=== PATIENT | male | born 1985 | race African-American/Black ===

== ENCOUNTER 2017-07-10 10:25 | Inpatient (IN) | payer SELFPAY ==
[~2017-07-10] VITALS: Ht 175.3 cm; Wt 101.6 kg
[2017-07-10] MEDS ORDERED: LORAZEPAM 2MG/ML CPJ IM ONE (11:30)
[2017-07-10 12:13] LABS: BASOPHILS % 0.8 % (0.0-2.0); EOSINOPHILS % 0.4 % (0.0-5.0); HEMATOCRIT. 41.6 % (42.0-52.0); HEMOGLOBIN. 14.2 g/dL (14.0-18.0); LYMPHOCYTES % 17.2 % (20.0-50.0); MEAN CORPUSCULAR HEMOGLOBIN 28.8 pg (28.0-32.0); MEAN CORPUSCULAR VOLUME 84.1 fL (80.0-94.0); MEAN PLATELET VOLUME 9.2 fl (7.4-10.4); MONOCYTES % 7.2 % (2.0-8.0); NEUTROPHILS % 74.4 % (40.0-76.0); PLATELET 213 x1000/uL (130-400); RED BLOOD CELL COUNT 4.94 mill/uL (4.7-6.1); RED CELL DISTRIBUTION WIDTH 13.5 % (11.6-14.6)
[2017-07-10 12:17] LABS: CHLORIDE 103 mEq/L (98-107)
[2017-07-10 12:18] LABS: INR 1.1; PARTIAL THROMBOPLASTIN TIME 23.1 sec (23.4-31.0); PROTHROMBIN TIME 11.8 sec (9.4-11.6)
[2017-07-10 12:22] LABS: ETHANOL BLOOD < 10 mg/dL
[2017-07-10 12:28] LABS: CARBAMAZEPINE < 0.5 ug/mL (4-12); PHENOBARBITAL < 2.1 ug/mL (15.0-40.0)
[2017-07-10] MEDS ORDERED: LEVETIRACETAM 500MG PREMIX 100 ML IV ONE (12:45)
[2017-07-10] MEDS ORDERED: OLANZAPINE 10 MG/VIAL IM ONE (13:00)
[2017-07-10 13:27] LABS: *AMPHETAMINES SCREEN URINE NEGATIVE (NEGATIVE); *BENZODIAZEPINES SCREEN URINE NEGATIVE (NEGATIVE); *COCAINE SCREEN URINE NEGATIVE (NEGATIVE); CANNABINOID URINE SCREEN NEGATIVE (NEGATIVE); METHADONE URINE SCREEN NEGATIVE (NEGATIVE); OPIATES URINE SCREEN NEGATIVE (NEGATIVE); PHENCYCLIDINE URINE SCREEN NEGATIVE (NEGATIVE)
[2017-07-10 13:31] LABS: *BARBITURATES SCREEN URINE NEGATIVE (NEGATIVE)
[2017-07-10] MEDS ORDERED: MIDAZOLAM HCL 2 MG/2 ML VIAL IV ONE (14:45)
[2017-07-10] MEDS ORDERED: LORAZEPAM 2MG/ML CPJ IV PRN (15:30)
[2017-07-10] MEDS ORDERED: CLONIDINE 0.1MG TABLET PO PRN (15:30)
[2017-07-10 18:22] VITALS: BP 148/90
[2017-07-10 18:30] VITALS: BP 148/90
[2017-07-10 20:00] VITALS: BP 154/95
[2017-07-10] MEDS: NIFEDIPINE XL 60MG TAB PO SCH (21:00)
[2017-07-10] MEDS: INSULIN LISPRO 100 UNITS/ML SUBCUT SCH (21:00)
[2017-07-10] MEDS: LEVETIRACETAM 500MG TABLET PO SCH (21:00)
[2017-07-10] MEDS: BLOOD SUGAR DIAGNOSTIC STRIP TEST SCH (21:22)
[2017-07-11] VITALS (31 sets, daily range): BP systolic 117–177; BP diastolic 75–111
[2017-07-11] MEDS ORDERED: LORAZEPAM 2MG/ML CPJ IV PRN (04:00)
[2017-07-11] MEDS: LORAZEPAM 2MG/ML CPJ IM PRN ×6 (04:13→22:14)
[2017-07-11] MEDS: BLOOD SUGAR DIAGNOSTIC STRIP TEST SCH ×4 (07:20→21:00)
[2017-07-11] MEDS: NIFEDIPINE XL 60MG TAB PO SCH ×3 (08:34→20:39)
[2017-07-11] MEDS: LEVETIRACETAM 500MG TABLET PO SCH ×2 (08:35→09:00)
[2017-07-11] MEDS: DEXTROSE 50% WATER 50ML SYRINGE IV PRN ×2 (08:45→22:24)
[2017-07-11] MEDS ORDERED: HYDRALAZINE 20MG/ML VIAL IV PRN (09:45)
[2017-07-11] MEDS ORDERED: LEVETIRACETAM 500MG PREMIX 100 ML IV SCH (10:00)
[2017-07-11] MEDS ORDERED: PHENYTOIN SODIUM 1,000 MG in SODIUM CHLORIDE 0.9% 100 ML IV ONE ×2 (11:30→12:45)
[2017-07-11] MEDS: INSULIN LISPRO 100 UNITS/ML SUBCUT SCH ×2 (12:00→17:00)
[2017-07-11] MEDS: DEXT 5%/0.45% NACL KCL 20MEQ/L 1,000 ML IV SCH (20:28)
[2017-07-11] MEDS: QUETIAPINE FUMARATE 25MG TABLET PO SCH (20:40)
[2017-07-12] VITALS (32 sets, daily range): BP systolic 121–158; BP diastolic 75–115
[2017-07-12] MEDS: LORAZEPAM 2MG/ML CPJ IM PRN ×3 (02:23→14:38)
[2017-07-12] MEDS: BLOOD SUGAR DIAGNOSTIC STRIP TEST SCH ×4 (06:23→21:06)
[2017-07-12] MEDS: NIFEDIPINE XL 60MG TAB PO SCH ×2 (09:00→21:02)
[2017-07-12] MEDS: PANTOPRAZOLE SODIUM 40 MG/VIAL IV SCH (09:00)
[2017-07-12] MEDS: QUETIAPINE FUMARATE 25MG TABLET PO SCH ×2 (09:00→21:02)
[2017-07-12] MEDS: DEXT 5%/0.45% NACL KCL 20MEQ/L 1,000 ML IV SCH (10:05)
[2017-07-12] MEDS ORDERED: KEPP500 PO (11:04)
[2017-07-12] MEDS ORDERED: NIFE60TA64 PO (11:04)
[2017-07-12] MEDS ORDERED: PHENYTOIN SODIUM 100MG/2ML VIAL IV SCH (21:00)
[2017-07-12] MEDS: PHENYTOIN SODIUM 300MG in SODIUM CHLORIDE 0.9% 50ML IV SCH (22:18)
[2017-07-13] VITALS: BP 144/72
[2017-07-13 04:00] VITALS: BP 128/82
[2017-07-13] MEDS: DEXT 5%/0.45% NACL KCL 20MEQ/L 1,000 ML IV SCH ×2 (06:43→12:00)
[2017-07-13] MEDS: BLOOD SUGAR DIAGNOSTIC STRIP TEST SCH ×4 (06:43→21:00)
[2017-07-13 08:00] VITALS: BP 128/90
[2017-07-13] MEDS: PANTOPRAZOLE SODIUM 40 MG/VIAL IV SCH (10:08)
[2017-07-13] MEDS: QUETIAPINE FUMARATE 25MG TABLET PO SCH ×2 (10:08→21:47)
[2017-07-13] MEDS: NIFEDIPINE XL 60MG TAB PO SCH ×2 (10:08→21:00)
[2017-07-13 12:00] VITALS: BP 130/76
[2017-07-13 16:00] VITALS: BP 116/71
[2017-07-13 20:00] VITALS: BP 112/66
[2017-07-13] MEDS: PHENYTOIN SODIUM 300MG in SODIUM CHLORIDE 0.9% 50ML IV SCH (21:50)
[2017-07-14] VITALS: BP 115/73
[2017-07-14] MEDS: DEXT 5%/0.45% NACL KCL 20MEQ/L 1,000 ML IV SCH ×2 (03:27→14:40)
[2017-07-14] MEDS: BLOOD SUGAR DIAGNOSTIC STRIP TEST SCH ×4 (05:53→20:33)
[2017-07-14 08:00] VITALS: BP 116/67
[2017-07-14] MEDS: QUETIAPINE FUMARATE 25MG TABLET PO SCH ×2 (09:04→20:44)
[2017-07-14] MEDS: PANTOPRAZOLE SODIUM 40 MG/VIAL IV SCH (09:04)
[2017-07-14] MEDS: NIFEDIPINE XL 60MG TAB PO SCH ×2 (09:05→20:45)
[2017-07-14 16:00] VITALS: BP 121/64
[2017-07-14 20:00] VITALS: BP 143/68
[2017-07-14] MEDS: FAMOTIDINE 20MG TABLET PO SCH (20:44)
[2017-07-14] MEDS: PHENYTOIN SODIUM 300MG in SODIUM CHLORIDE 0.9% 50ML IV SCH (22:41)
[2017-07-15] VITALS: BP 115/65
[2017-07-15 04:00] VITALS: BP 117/68
[2017-07-15] MEDS: BLOOD SUGAR DIAGNOSTIC STRIP TEST SCH ×4 (05:56→19:54)
[2017-07-15 08:00] VITALS: BP 141/62
[2017-07-15] MEDS: NIFEDIPINE XL 60MG TAB PO SCH ×2 (08:34→20:20)
[2017-07-15] MEDS: FAMOTIDINE 20MG TABLET PO SCH ×2 (08:34→20:21)
[2017-07-15] MEDS: QUETIAPINE FUMARATE 25MG TABLET PO SCH ×2 (08:34→20:21)
[2017-07-15] MEDS: DEXT 5%/0.45% NACL KCL 20MEQ/L 1,000 ML IV SCH ×2 (10:03→17:20)
[2017-07-15 12:00] VITALS: BP 150/67
[2017-07-15 16:00] VITALS: BP 115/63
[2017-07-15 20:00] VITALS: BP 107/62
[2017-07-15] MEDS: PHENYTOIN SODIUM 300MG in SODIUM CHLORIDE 0.9% 50ML IV SCH (21:20)
[2017-07-16] VITALS: BP 121/62
[2017-07-16 04:00] VITALS: BP 109/80
[2017-07-16] MEDS: BLOOD SUGAR DIAGNOSTIC STRIP TEST SCH (06:04)
[2017-07-16 07:11] LABS: BASOPHILS % 0.8 % (0.0-2.0); EOSINOPHILS % 5.3 % (0.0-5.0); HEMATOCRIT. 38.6 % (42.0-52.0); HEMOGLOBIN. 13.1 g/dL (14.0-18.0); LYMPHOCYTES % 26.2 % (20.0-50.0); MEAN CORPUSCULAR VOLUME 85.6 fL (80.0-94.0); MEAN PLATELET VOLUME 9.3 fl (7.4-10.4); MONOCYTES % 6.8 % (2.0-8.0); NEUTROPHILS % 60.9 % (40.0-76.0); PLATELET 210 x1000/uL (130-400); RED BLOOD CELL COUNT 4.51 mill/uL (4.7-6.1); RED CELL DISTRIBUTION WIDTH 13.2 % (11.6-14.6)
[2017-07-16 08:00] VITALS: BP 114/71
[2017-07-16] MEDS: NIFEDIPINE XL 60MG TAB PO SCH ×2 (08:05→20:34)
[2017-07-16] MEDS: QUETIAPINE FUMARATE 25MG TABLET PO SCH ×2 (08:05→20:34)
[2017-07-16] MEDS: FAMOTIDINE 20MG TABLET PO SCH ×2 (08:05→20:33)
[2017-07-16 08:21] LABS: CHLORIDE 103 mEq/L (98-107)
[2017-07-16 12:00] VITALS: BP 111/65
[2017-07-16] MEDS: DEXT 5%/0.45% NACL KCL 20MEQ/L 1,000 ML IV SCH ×2 (13:38→20:40)
[2017-07-16 16:00] VITALS: BP 115/70
[2017-07-16 20:00] VITALS: BP 110/63
[2017-07-16] MEDS: PHENYTOIN SODIUM 300MG in SODIUM CHLORIDE 0.9% 50ML IV SCH (20:40)
[2017-07-17] VITALS: BP 108/80
[2017-07-17 04:00] VITALS: BP 125/85
[2017-07-17 08:00] VITALS: BP 117/70
[2017-07-17] MEDS: FAMOTIDINE 20MG TABLET PO SCH ×2 (08:33→20:52)
[2017-07-17] MEDS: NIFEDIPINE XL 60MG TAB PO SCH ×2 (08:33→20:52)
[2017-07-17] MEDS: QUETIAPINE FUMARATE 25MG TABLET PO SCH ×2 (08:33→20:52)
[2017-07-17 11:46] VITALS: BP 115/75
[2017-07-17 16:00] VITALS: BP 120/78
[2017-07-17 20:00] VITALS: BP 129/79
[2017-07-17] MEDS: PHENYTOIN SODIUM 300MG in SODIUM CHLORIDE 0.9% 50ML IV SCH (20:16)
[2017-07-17] MEDS: DEXT 5%/0.45% NACL KCL 20MEQ/L 1,000 ML IV SCH (20:17)
[2017-07-18] VITALS: BP 119/63
[2017-07-18 04:00] VITALS: BP 115/73
[2017-07-18 08:00] VITALS: BP 139/64
[2017-07-18] MEDS: NIFEDIPINE XL 60MG TAB PO SCH ×2 (08:20→20:39)
[2017-07-18] MEDS: FAMOTIDINE 20MG TABLET PO SCH ×2 (08:20→20:39)
[2017-07-18] MEDS: QUETIAPINE FUMARATE 25MG TABLET PO SCH ×2 (08:20→20:40)
[2017-07-18 11:39] VITALS: BP 118/73
[2017-07-18 15:32] VITALS: BP 117/76
[2017-07-18 20:00] VITALS: BP 113/69
[2017-07-18] MEDS: PHENYTOIN SODIUM EXTENDED 100MG CAPSULE PO SCH (20:39)
[2017-07-19 00:59] VITALS: BP 110/60
[2017-07-19 04:00] VITALS: BP 108/62
[2017-07-19 08:00] VITALS: BP 115/77
[2017-07-19] MEDS: QUETIAPINE FUMARATE 25MG TABLET PO SCH ×2 (08:41→20:31)
[2017-07-19] MEDS: FAMOTIDINE 20MG TABLET PO SCH ×2 (08:41→20:31)
[2017-07-19] MEDS: NIFEDIPINE XL 60MG TAB PO SCH ×2 (08:41→20:32)
[2017-07-19 12:00] VITALS: BP 115/78
[2017-07-19 15:39] VITALS: BP 117/75
[2017-07-19 20:00] VITALS: BP 111/68
[2017-07-19] MEDS: PHENYTOIN SODIUM EXTENDED 100MG CAPSULE PO SCH (20:31)
[2017-07-20] VITALS: BP 114/71
[2017-07-20 04:00] VITALS: BP 101/52
[2017-07-20 08:00] VITALS: BP 106/63
[2017-07-20] MEDS: QUETIAPINE FUMARATE 25MG TABLET PO SCH ×2 (08:24→20:43)
[2017-07-20] MEDS: FAMOTIDINE 20MG TABLET PO SCH ×2 (08:25→20:43)
[2017-07-20] MEDS: NIFEDIPINE XL 60MG TAB PO SCH ×2 (08:26→20:43)
[2017-07-20 12:00] VITALS: BP 103/63
[2017-07-20 16:00] VITALS: BP 121/82
[2017-07-20 20:01] VITALS: BP 112/72
[2017-07-20] MEDS: PHENYTOIN SODIUM EXTENDED 100MG CAPSULE PO SCH (20:43)
[2017-07-21] VITALS: BP 95/56
[2017-07-21 04:00] VITALS: BP 108/59
[2017-07-21 07:22] VITALS: BP 112/62
[2017-07-21] MEDS: NIFEDIPINE XL 60MG TAB PO SCH (09:49)
[2017-07-21] MEDS: QUETIAPINE FUMARATE 25MG TABLET PO SCH (09:49)
[2017-07-21] MEDS: FAMOTIDINE 20MG TABLET PO SCH (09:49)
[2017-07-21 12:00] VITALS: BP 113/73
== END 2017-07-21 15:25 | disposition home or self-care (01) | DRG 53 ==
LOC: ER 10:40 → 6WST 13:30 → EDBEDREQ 13:33 → CANRESERV 14:01 → ENRESERV 14:01 → MICUSO 07-11 07:00 → 6EST 07-12 18:05 → 8WST 07-13 17:27
PROVIDERS: ADMIT Internal Medicine; ATTEND Internal Medicine
PROC: 4A00X4Z Measurement of Central Nervous Electrical Activity, External Approach (ICD-10-PCS; principal; 2017-07-11)
DX: G40.409 Other generalized epilepsy and epileptic syndromes, not intractable, without status epilepticus (principal); Z78.1 Physical restraint status; I10 Essential (primary) hypertension; F99 Mental disorder, not otherwise specified; E66.9 Obesity, unspecified; Z59.0 Homelessness; Z68.33 Body mass index [BMI] 33.0-33.9, adult; Z71.3 Dietary counseling and surveillance
CPT/HCPCS: 36415; 70450; 70551; 80048; 80053; 80156; 80165; 80184; 80185; 80305; 80307; 80329; 82962; 83036; 85025; 85610; 85730; 93005; 96372; 96374; 96375; 99291; C1893; C9113; G0482; J0360; J1165; J1953; J2060; J2250; J3490; J7050

== ENCOUNTER 2018-12-31 11:10 | Emergency (ER) | payer MEDICAID, MEDICARE ==
[~2018-12-31] VITALS: Ht 182.9 cm; Wt 98.0 kg
[~2018-12-31 11:10] MED LIST: KEPP500 PO; NIFE60TA64 PO
[2018-12-31] MEDS ORDERED: SODIUM CHLORIDE 0.9% 1,000 ML IV ONE (12:17)
[2018-12-31 12:51] LABS: BASOPHILS % 0.7 % (0.0-2.0); EOSINOPHILS % 2.5 % (0.0-5.0); HEMATOCRIT. 42.1 % (42.0-52.0); HEMOGLOBIN. 14.4 g/dL (14.0-18.0); LYMPHOCYTES % 19.7 % (20.0-50.0); MEAN CORPUSCULAR HEMOGLOBIN 28.8 pg (28.0-32.0); MEAN PLATELET VOLUME 9.2 fl (7.4-10.4); MONOCYTES % 6.8 % (2.0-8.0); NEUTROPHILS % 70.3 % (40.0-76.0); PLATELET 203 x1000/uL (130-400); RED BLOOD CELL COUNT 5.01 mill/uL (4.7-6.1); RED CELL DISTRIBUTION WIDTH 13.5 % (11.6-14.6)
[2018-12-31 13:03] LABS: CHLORIDE 106 mEq/L (98-107)
[2018-12-31 13:06] LABS: ETHANOL BLOOD < 10 mg/dL
[2018-12-31] MEDS ORDERED: LORAZEPAM 2MG/ML CPJ ONE (13:39)
[2018-12-31 13:45] LABS: CLARITY URINE CLEAR (CLEAR); COLOR URINE YELLOW (YELLOW); KETONES URINE NEGATIVE (NEGATIVE); LEUKOCYTE ESTERASE URINE NEGATIVE (NEGATIVE); NITRITE URINE NEGATIVE (NEGATIVE); OCCULT BLOOD URINE NEGATIVE (NEGATIVE); PROTEIN URINE 1+ (NEGATIVE); SPECIFIC GRAVITY URINE 1.024 (1.005-1.030); UROBILINOGEN URINE 0.2 E.U./dL (0.2-1.0)
[2018-12-31] MEDS ORDERED: LORAZEPAM 2MG/ML CPJ IV ONE ×2 (13:45→16:45)
[2018-12-31] MEDS ORDERED: OLANZAPINE 10 MG/VIAL IM ONE ×2 (13:45→19:15)
[2018-12-31 14:08] LABS: *AMPHETAMINES SCREEN URINE NEGATIVE (NEGATIVE); *BENZODIAZEPINES SCREEN URINE NEGATIVE (NEGATIVE); *COCAINE SCREEN URINE NEGATIVE (NEGATIVE); METHADONE URINE SCREEN NEGATIVE (NEGATIVE)
[2018-12-31 14:09] LABS: *BARBITURATES SCREEN URINE NEGATIVE (NEGATIVE); CANNABINOID URINE SCREEN NEGATIVE (NEGATIVE); OPIATES URINE SCREEN NEGATIVE (NEGATIVE); PHENCYCLIDINE URINE SCREEN NEGATIVE (NEGATIVE)
[2018-12-31] MEDS ORDERED: HALOPERIDOL LACTATE 5MG/ML VIAL IM ONE (19:15)
[2019-01-02] MEDS ORDERED: NIFEDIPINE XL 60MG TAB PO ONE (16:15)
[2019-01-02] MEDS ORDERED: CLONIDINE 0.2MG TABLET PO ONE (21:00)
[2019-01-04] MEDS ORDERED: HYDRALAZINE 20MG/ML VIAL IM ONE (11:45)
[2019-01-04] MEDS ORDERED: LORAZEPAM 2MG/ML CPJ IM ONE (15:15)
[2019-01-04] MEDS ORDERED: HALOPERIDOL LACTATE 5MG/ML VIAL IM ONE (16:00)
[2019-01-04] MEDS ORDERED: DIPHENHYDRAMINE 50MG/ML VIAL IM ONE (16:00)
[2019-01-05 16:02] VITALS: BP 161/99
== END 2019-01-05 15:59 ==
LOC: ER 11:10
DX: F23 Brief psychotic disorder (principal); R41.82 Altered mental status, unspecified; Z79.899 Other long term (current) drug therapy
CPT/HCPCS: 36415; 80053; 80305; 80307; 80320; 80329; 81003; 82962; 85025; 96361; 96372; 96374; 96376; 99285; J1200; J1630; J2060; J3490; J7030; G0480

== ENCOUNTER 2019-01-17 08:26 | Emergency (ER) | payer MEDICARE ==
[~2019-01-17] VITALS: Ht 175.3 cm; Wt 100.0 kg
[2019-01-17 09:56] LABS: BASOPHILS % 1.2 % (0.0-2.0); EOSINOPHILS % 6.8 % (0.0-5.0); HEMATOCRIT. 42.1 % (42.0-52.0); HEMOGLOBIN. 14.2 g/dL (14.0-18.0); LYMPHOCYTES % 30.1 % (20.0-50.0); MEAN CORPUSCULAR HEMOGLOBIN 28.7 pg (28.0-32.0); MEAN PLATELET VOLUME 9.3 fl (7.4-10.4); MONOCYTES % 7.4 % (2.0-8.0); NEUTROPHILS % 54.5 % (40.0-76.0); PLATELET 235 x1000/uL (130-400); RED BLOOD CELL COUNT 4.96 mill/uL (4.7-6.1); RED CELL DISTRIBUTION WIDTH 13.2 % (11.6-14.6)
[2019-01-17 10:03] LABS: CHLORIDE 104 mEq/L (98-107)
[2019-01-17 10:07] LABS: ETHANOL BLOOD < 10 mg/dL
[2019-01-17 10:16] LABS: CLARITY URINE CLEAR (CLEAR); COLOR URINE YELLOW (YELLOW); KETONES URINE TRACE (NEGATIVE); LEUKOCYTE ESTERASE URINE NEGATIVE (NEGATIVE); NITRITE URINE NEGATIVE (NEGATIVE); OCCULT BLOOD URINE NEGATIVE (NEGATIVE); PH URINE 6.5 (4.5-8.0); PROTEIN URINE NEGATIVE (NEGATIVE); SPECIFIC GRAVITY URINE 1.026 (1.005-1.030); UROBILINOGEN URINE 0.2 E.U./dL (0.2-1.0)
[2019-01-17 10:27] LABS: *AMPHETAMINES SCREEN URINE NEGATIVE (NEGATIVE); *BARBITURATES SCREEN URINE NEGATIVE (NEGATIVE); *BENZODIAZEPINES SCREEN URINE NEGATIVE (NEGATIVE); *COCAINE SCREEN URINE NEGATIVE (NEGATIVE); CANNABINOID URINE SCREEN NEGATIVE (NEGATIVE); METHADONE URINE SCREEN NEGATIVE (NEGATIVE); OPIATES URINE SCREEN NEGATIVE (NEGATIVE); PHENCYCLIDINE URINE SCREEN NEGATIVE (NEGATIVE)
[2019-01-17] MEDS ORDERED: HYDRALAZINE HCL 50MG TABLET PO ONE (12:45)
[2019-01-17 15:43] VITALS: BP 165/114
== END 2019-01-17 15:44 | disposition short-term general hospital (02) ==
LOC: ER 08:26
DX: I10 Essential (primary) hypertension (principal); R56.9 Unspecified convulsions
CPT/HCPCS: 36415; 80048; 80305; 80307; 80320; 80329; 81003; 99285; G0480

== ENCOUNTER 2019-04-30 16:03 | Inpatient (IN) | payer MEDICAID, MEDICARE ==
[~2019-04-30] VITALS: Ht 177.8 cm; Wt 97.6 kg
[~2019-04-30 16:03] MED LIST changes: +NIFE-32 PO; -NIFE60TA64 PO
[2019-04-30] MEDS ORDERED: SODIUM CHLORIDE 0.9% 1,000 ML IV ONE (19:08)
[2019-04-30 19:53] LABS: CHLORIDE 103 mEq/L (98-107)
[2019-04-30 19:56] LABS: ETHANOL BLOOD < 10 mg/dL
[2019-04-30 20:03] LABS: BASOPHILS % 0.3 % (0.0-2.0); EOSINOPHILS % 0.2 % (0.0-5.0); HEMATOCRIT. 42.4 % (42.0-52.0); HEMOGLOBIN. 14.3 g/dL (14.0-18.0); LYMPHOCYTES % 7.5 % (20.0-50.0); MEAN CORPUSCULAR HEMOGLOBIN 28.7 pg (28.0-32.0); MEAN CORPUSCULAR VOLUME 85.1 fL (80.0-94.0); MEAN PLATELET VOLUME 10.4 fl (7.4-10.4); MONOCYTES % 4.5 % (2.0-8.0); NEUTROPHILS % 87.5 % (40.0-76.0); PLATELET 246 x1000/uL (130-400); RED BLOOD CELL COUNT 4.99 mill/uL (4.7-6.1); RED CELL DISTRIBUTION WIDTH 13.6 % (11.6-14.6)
[2019-04-30 20:35] LABS: CLARITY URINE CLEAR (CLEAR); COLOR URINE YELLOW (YELLOW); KETONES URINE NEGATIVE (NEGATIVE); LEUKOCYTE ESTERASE URINE NEGATIVE (NEGATIVE); NITRITE URINE NEGATIVE (NEGATIVE); OCCULT BLOOD URINE 1+ (NEGATIVE); PH URINE 5.5 (4.5-8.0); PROTEIN URINE 2+ (NEGATIVE); SPECIFIC GRAVITY URINE 1.022 (1.005-1.030); UROBILINOGEN URINE 0.2 E.U./dL (0.2-1.0)
[2019-04-30 20:51] LABS: *AMPHETAMINES SCREEN URINE NEGATIVE (NEGATIVE); *BARBITURATES SCREEN URINE NEGATIVE (NEGATIVE); *BENZODIAZEPINES SCREEN URINE NEGATIVE (NEGATIVE); *COCAINE SCREEN URINE NEGATIVE (NEGATIVE); METHADONE URINE SCREEN NEGATIVE (NEGATIVE)
[2019-04-30 20:52] LABS: CANNABINOID URINE SCREEN NEGATIVE (NEGATIVE); OPIATES URINE SCREEN NEGATIVE (NEGATIVE); PHENCYCLIDINE URINE SCREEN NEGATIVE (NEGATIVE)
[2019-04-30] MEDS ORDERED: ASPIRIN 81MG TABLET PO SCH (21:45)
[2019-04-30] MEDS ORDERED: PIPERACILLIN/TAZOBACTAM 3.375GM/50ML PREMIX IV SCH (21:45)
[2019-04-30 22:10] LABS: CREATINE KINASE 714 IU/L (39-308)
[2019-04-30] MEDS ORDERED: LORAZEPAM 2MG/ML CPJ IV ONE (23:00)
[2019-04-30] MEDS ORDERED: LEVETIRACETAM 500MG PREMIX 100 ML IV ONE (23:00)
[2019-05-01 00:47] LABS: BG BASE EXCESS -5.9 mmol/L (-2.0-2.0); BG CARBOXYHEMOGLOBIN 0.6 % (0.5-1.5); BG DEOXYHEMOGLOBIN 4.4 % (0.0-5.0); BG FRACTION INSPIRED OXYGEN 40; BG HCO3 ACT 18.7 mmol/L (22.0-26.0); BG METHEMOGLOBIN 0.4 % (0.0-1.5); BG OXYGEN SATURATION 95.6 % (92.0-98.5); BG OXYHEMOGLOBIN 94.6 % (94.0-97.0); BG PCO2 34.2 mmHg (35.0-45.0); BG PH 7.356 (7.350-7.450); BG PO2 86.4 mmHg (75.0-100.0); BG SAMPLE SITE LEFT RADIAL; BG VENT MODE NASAL CANNULA
[2019-05-01] MEDS ORDERED: HYDROCODONE/ACETAMINOPHEN 5/325MG TABLET PO PRN (10:30)
[2019-05-01] MEDS ORDERED: IPRATROPIUM/ALBUTEROL 0.5-3(2.5)MG/3ML NEB NEB PRN (10:30)
[2019-05-01] MEDS ORDERED: GUAIFENESIN 200MG/10ML SUGAR FREE UDC PO PRN (10:30)
[2019-05-01] MEDS ORDERED: ACETAMINOPHEN 325MG TABLET PO PRN (10:30)
[2019-05-01] MEDS ORDERED: ACETAMINOPHEN 650MG SUPP PR PRN (10:30)
[2019-05-01] MEDS ORDERED: DOCUSATE SODIUM 100MG CAPSULE PO PRN (10:30)
[2019-05-01] MEDS ORDERED: LORAZEPAM 2MG/ML CPJ IV PRN (10:30)
[2019-05-01] MEDS ORDERED: NA PHOS,M-B/NA PHOS,DI-BA ENEMA 118ML PR PRN (10:30)
[2019-05-01] MEDS ORDERED: LEVETIRACETAM 500 MG in SODIUM CHLORIDE 0.9% 100 ML IV SCH (10:30)
[2019-05-01] MEDS ORDERED: MAGNESIUM/ALUMINUM HYDROXIDE/SIMETHICONE 30ML UDC PO PRN (10:30)
[2019-05-01] MEDS ORDERED: DIPHENHYDRAMINE 50MG/ML VIAL IV PRN (10:30)
[2019-05-01] MEDS ORDERED: LORAZEPAM 0.5MG TABLET PO PRN (10:30)
[2019-05-01] MEDS ORDERED: ONDANSETRON HCL 4MG/2ML INJ IV PRN (10:30)
[2019-05-01] MEDS ORDERED: PIPERACILLIN/TAZOBACTAM 3.375 G in DEXT 5% WATER 100 ML IV ONE (11:15)
[2019-05-01] MEDS ORDERED: LEVETIRACETAM 500MG PREMIX 100 ML IV ONE (11:16)
[2019-05-01] MEDS ORDERED: FAMOTIDINE 20MG/2ML VIAL IV SCH (11:30)
[2019-05-01] MEDS: DEXT 5%/0.45% NACL 1000ML 1,000 ML IV SCH ×2 (11:48→22:02)
[2019-05-01] MEDS: NIFEDIPINE XL 60MG TAB PO SCH (11:56)
[2019-05-01 15:44] VITALS: BP 147/100
[2019-05-01] MEDS ORDERED: LEVETIRACETAM 500MG PREMIX 100 ML IV SCH (15:45)
[2019-05-01 15:49] VITALS: BP 147/100
[2019-05-01] MEDS: ASPIRIN 81MG EC TABLET PO SCH (16:47)
[2019-05-01] MEDS: PHENYTOIN SODIUM 100MG/2ML VIAL IV SCH ×2 (16:47→22:00)
[2019-05-01] MEDS: PIPERACILLIN/TAZOBACTAM 3.375 G in DEXT 5% WATER 100 ML IV SCH (17:32)
[2019-05-01 18:04] VITALS: BP 156/96
[2019-05-01 19:13] LABS: BASOPHILS % 0.6 % (0.0-2.0); EOSINOPHILS % 1.8 % (0.0-5.0); HEMATOCRIT. 41.3 % (42.0-52.0); HEMOGLOBIN. 13.9 g/dL (14.0-18.0); LYMPHOCYTES % 19.2 % (20.0-50.0); MEAN CORPUSCULAR HEMOGLOBIN 28.5 pg (28.0-32.0); MEAN CORPUSCULAR VOLUME 84.6 fL (80.0-94.0); MEAN PLATELET VOLUME 9.5 fl (7.4-10.4); MONOCYTES % 5.4 % (2.0-8.0); PLATELET 217 x1000/uL (130-400); RED BLOOD CELL COUNT 4.88 mill/uL (4.7-6.1); RED CELL DISTRIBUTION WIDTH 13.5 % (11.6-14.6)
[2019-05-01 19:18] LABS: CHLORIDE 108 mEq/L (98-107)
[2019-05-01 19:21] LABS: INR 1.1; PROTHROMBIN TIME 11.3 sec (9.6-11.0)
[2019-05-01 19:30] LABS: CREATINE KINASE MB FRACTION 2.7 ng/mL (0.5-3.6)
[2019-05-01 19:43] LABS: CREATINE KINASE 7000 IU/L (39-308)
[2019-05-01 20:00] VITALS: BP 135/62
[2019-05-01] MEDS ORDERED: POTASSIUM CHLORIDE 20MEQ TABLET SR PO NR (20:45)
[2019-05-01] MEDS: LEVETIRACETAM 500MG PREMIX 100 ML IV SCH (21:59)
[2019-05-01 22:00] VITALS: BP 151/100
[2019-05-01] MEDS: CLONIDINE 0.1MG TABLET PO PRN (22:11)
[2019-05-02] VITALS (9 sets, daily range): BP systolic 127–163; BP diastolic 53–103
[2019-05-02] MEDS: PIPERACILLIN/TAZOBACTAM 3.375 G in DEXT 5% WATER 100 ML IV SCH ×3 (01:03→11:29)
[2019-05-02] MEDS: PHENYTOIN SODIUM 100MG/2ML VIAL IV SCH ×3 (06:05→21:41)
[2019-05-02] MEDS: DEXT 5%/0.45% NACL 1000ML 1,000 ML IV SCH ×2 (06:05→11:37)
[2019-05-02 07:52] LABS: BASOPHILS % 1.4 % (0.0-2.0); HEMOGLOBIN. 13.3 g/dL (14.0-18.0); LYMPHOCYTES % 17.4 % (20.0-50.0); MEAN CORPUSCULAR HEMOGLOBIN 28.8 pg (28.0-32.0); MEAN CORPUSCULAR VOLUME 84.6 fL (80.0-94.0); MEAN PLATELET VOLUME 9.6 fl (7.4-10.4); MONOCYTES % 7.2 % (2.0-8.0); PLATELET 210 x1000/uL (130-400); RED BLOOD CELL COUNT 4.61 mill/uL (4.7-6.1); RED CELL DISTRIBUTION WIDTH 13.3 % (11.6-14.6)
[2019-05-02 08:03] LABS: CHLORIDE 111 mEq/L (98-107)
[2019-05-02 08:15] LABS: LDL CHOLESTEROL 144 mg/dL (5-100)
[2019-05-02 08:16] LABS: CREATINE KINASE MB FRACTION 1.5 ng/mL (0.5-3.6); HDL CHOLESTEROL 34 mg/dL (40-59)
[2019-05-02 08:37] LABS: CREATINE KINASE 4894 IU/L (39-308)
[2019-05-02] MEDS: ASPIRIN 81MG EC TABLET PO SCH (08:45)
[2019-05-02] MEDS: NIFEDIPINE XL 60MG TAB PO SCH (08:45)
[2019-05-02] MEDS: LEVETIRACETAM 500MG PREMIX 100 ML IV SCH ×2 (08:47→21:40)
[2019-05-02 23:20] LABS: BG BASE EXCESS -0.1 mmol/L (-2.0-2.0); BG CARBOXYHEMOGLOBIN 0.3 % (0.5-1.5); BG DEOXYHEMOGLOBIN 3.7 % (0.0-5.0); BG FRACTION INSPIRED OXYGEN 21; BG HCO3 ACT 24.1 mmol/L (22.0-26.0); BG METHEMOGLOBIN 0.3 % (0.0-1.5); BG OXYGEN SATURATION 96.3 % (92.0-98.5); BG OXYHEMOGLOBIN 95.7 % (94.0-97.0); BG PCO2 37.5 mmHg (35.0-45.0); BG PH 7.425 (7.350-7.450); BG PO2 85.3 mmHg (75.0-100.0); BG SAMPLE SITE LEFT RADIAL; BG TOTAL HEMOGLOBIN 13.2 g/dL (12.0-18.0); BG VENT MODE ROOM AIR
[2019-05-03] VITALS (8 sets, daily range): BP systolic 132–156; BP diastolic 71–107
[2019-05-03] MEDS: PIPERACILLIN/TAZOBACTAM 3.375 G in DEXT 5% WATER 100 ML IV SCH ×4 (01:29→17:42)
[2019-05-03] MEDS: PHENYTOIN SODIUM 100MG/2ML VIAL IV SCH ×2 (05:42→14:00)
[2019-05-03 06:14] LABS: HEMATOCRIT 36.3 % (42.0-52.0); HEMOGLOBIN 12.6 g/dL (14.0-18.0); MEAN CORPUSCULAR HEMOGLOBIN 29.3 pg (28.0-32.0); MEAN CORPUSCULAR VOLUME 84.6 fL (80.0-94.0); PLATELET 207 x1000/uL (130-400); RED BLOOD CELL COUNT 4.29 mill/uL (4.7-6.1); RED CELL DISTRIBUTION WIDTH 13.3 % (11.6-14.6)
[2019-05-03 06:42] LABS: CHLORIDE 106 mEq/L (98-107)
[2019-05-03] MEDS: NIFEDIPINE XL 60MG TAB PO SCH (08:42)
[2019-05-03] MEDS: ASPIRIN 81MG EC TABLET PO SCH (08:42)
[2019-05-03] MEDS: LEVETIRACETAM 500MG PREMIX 100 ML IV SCH (08:43)
[2019-05-03] MEDS ORDERED: FAMOTIDINE 40MG TABLET PO SCH (09:00)
[2019-05-03 13:39] LABS: CREATINE KINASE 6509 IU/L (39-308)
[2019-05-03] MEDS: CLONIDINE 0.1MG TABLET PO PRN (13:41)
[2019-05-03] MEDS ORDERED: PHENYTOIN SODIUM 1,000 MG in SODIUM CHLORIDE 0.9% 100 ML IV SCH (14:00)
[2019-05-03] MEDS ORDERED: PHEN100C4 MT (14:19)
[2019-05-03] MEDS ORDERED: NIFE60TA78 MT (14:19)
[2019-05-03 15:09] LABS: HIV SCREEN 4G Non Reactive (Non Reactive)
[2019-05-04] MEDS ORDERED: NIFEDIPINE XL 90MG TAB PO SCH (09:00)
== END 2019-05-03 19:50 | disposition home or self-care (01) | DRG 53 ==
LOC: ER 16:03 → 5EST 05-01 → EDBEDREQSVC 05-01 00:20 → SUPCPDRO 05-01 10:25 → ENRESERV 05-01 13:19
PROVIDERS: ADMIT Internal Medicine; ATTEND Internal Medicine
DX: G40.909 Epilepsy, unspecified, not intractable, without status epilepticus (principal); J81.1 Chronic pulmonary edema; M62.82 Rhabdomyolysis; E78.5 Hyperlipidemia, unspecified; I10 Essential (primary) hypertension; N28.9 Disorder of kidney and ureter, unspecified; R06.03 Acute respiratory distress; R74.0 Nonspecific elevation of levels of transaminase and lactic acid dehydrogenase [LDH]; F17.210 Nicotine dependence, cigarettes, uncomplicated; Z79.899 Other long term (current) drug therapy
CPT/HCPCS: 36415; 36600; 70551; 71045; 71250; 80048; 80053; 80061; 80185; 80305; 80320; 81003; 82140; 82375; 82542; 82550; 82553; 82805; 83036; 83880; 84439; 84443; 84484; 85025; 85027; 87389; 87449; 87804; 93005; 93306; 93970; 97162; 99285; J1165; J1953; J2060; J2543; J3490; J7030; J7050; J7060; G0480

== ENCOUNTER 2021-11-02 17:24 | Emergency (ER) | payer MEDICARE ==
[~2021-11-02] VITALS: Ht 167.6 cm; Wt 125.0 kg
[~2021-11-02 17:24] MED LIST changes: +NIFE60TA78 MT; +PHEN100C4 MT
[2021-11-02] MEDS ORDERED: SODIUM CHLORIDE 0.9% 1,000 ML IV ONE (19:30)
[2021-11-02] MEDS ORDERED: LEVETIRACETAM 1000MG PREMIX 100 ML IV ONE (19:30)
[2021-11-02 20:45] LABS: BASOPHILS % 0.4 % (0.0-2.0); EOSINOPHILS % 0.1 % (0.0-5.0); HEMATOCRIT. 38.2 % (42.0-52.0); HEMOGLOBIN. 12.8 g/dL (14.0-18.0); LYMPHOCYTES % 11.6 % (20.0-50.0); MEAN CORPUSCULAR HEMOGLOBIN 28.5 pg (28.0-32.0); MEAN CORPUSCULAR VOLUME 85.1 fL (80.0-94.0); MEAN PLATELET VOLUME 9.5 fl (7.4-10.4); MONOCYTES % 7.1 % (2.0-8.0); NEUTROPHILS % 80.8 % (40.0-76.0); PLATELET 227 x1000/uL (130-400); RED BLOOD CELL COUNT 4.48 mill/uL (4.7-6.1); RED CELL DISTRIBUTION WIDTH 13.8 % (11.6-14.6)
[2021-11-02 20:49] LABS: CHLORIDE 100 mEq/L (98-107)
[2021-11-02] MEDS ORDERED: KEPP500 MT (23:37)
[2021-11-03 01:35] VITALS: BP 129/74
== END 2021-11-03 03:36 | disposition home or self-care (01) ==
LOC: ER 17:24
DX: G40.909 Epilepsy, unspecified, not intractable, without status epilepticus (principal); R74.01 Elevation of levels of liver transaminase levels
CPT/HCPCS: 36415; 80053; 85025; 96365; 99285; J1953; J7030